=== PATIENT | male | born 1965 | race Caucasian/White ===

== ENCOUNTER 2020-04-04 01:20 | Observation (INO) ==
[2020-04-04] MEDS ORDERED: ONDANSETRON 4 MG/2 ML VIAL IV STA (01:35)
[2020-04-04] MEDS ORDERED: SODIUM CHLORIDE 0.9% 1,000 ML IV STA (01:35)
[2020-04-04] MEDS ORDERED: HYDROmorphone 2 MG/1 ML VIAL IV STA (01:35)
[2020-04-04] MEDS ORDERED: KETOROLAC 30 MG/1 ML VIAL IV STA (01:35)
[2020-04-04 02:15] LABS: Basophils % 0.5 % (0.0-0.8); Eosinophils % 0.3 % (0.00-10.9); Hematocrit 41.5 VOL% (42.0-52.0); Hemoglobin 14.7 GM/DL (14.0-18.0); Immature Granulocytes % 0.3 %; Immature Granulocytes Absolute 0.01 #; Lymphocytes # 1.3 10*3/uL (1.4-4.0); Lymphocytes % 34.2 % (21.2-54.2); Mean Corpuscular HGB Conc 35.4 GM/DL (32-36); Mean Corpuscular Volume 91.2 FL (87-102); Mean Platelet Volume 11.1 FL (9.6-12.0); Monocytes % 13.9 % (1.7-12.7); Neutrophils % 50.8 % (38.7-73.9); Platelet Count 142 T/CUMM (130-400); Red Blood Count 4.55 MC/CUMM (3.8-5.5); Red Cell Distribution Width 11.5 % (9.3-17.3); White Blood Count 3.7 T/CUMM (4-12)
[2020-04-04 02:35] LABS: Albumin 3.5 G/DL (3.4-5.0); Bilirubin,Total 0.4 MG/DL (0.2-1.0); Calcium 8.5 MG/DL (8.5-10.1); Osmolality,Calculated 278.8 MOS/KG (273-304); Total Protein 6.7 G/DL (6.4-8.3)
[2020-04-04] MEDS ORDERED: MAGNESIUM SULF RIDER 2 GM in PREMIX 1 EACH IV STA (02:43)
[2020-04-04] MEDS ORDERED: HYDROmorphone 2 MG/1 ML VIAL IV ONE (03:10)
[2020-04-04 03:44] LABS: Apearance,Urine CLEAR (Clear); Bilirubin,Urine Negative (Negative); Blood, Urine Large mg/dL (Negative); Glucose,Urine (UA) 50 mg/dL (Negative); Hyaline Casts,Urine 6 /LPF (0-3); Ketones,Urine Negative (Negative); Mucus,Urine Occasional /LPF (Occasional); Nitrite,Urine Negative (Negative); Protein,Urine 30 MG/DL; RBC,Urine 22 /HPF (0-4); Urine Color Yellow (Yellow); Urine Specific Gravity 1.017 (1.001-1.035); Urine Urobilinogen < 2.0 EU/DL (0.2-1.0); WBC,Urine 2 /HPF (0-6)
[2020-04-04] MEDS ORDERED: GLUCAGON 1 MG VIAL IM PRN (05:02)
[2020-04-04] MEDS ORDERED: ONDANSETRON 4 MG/2 ML VIAL IV PRN (05:02)
[2020-04-04] MEDS ORDERED: DEXTROSE 50% 25 GM/50 ML VIAL IV PRN (05:02)
[2020-04-04] MEDS: SODIUM CHLORIDE 0.9% 1,000 ML IV SCH ×2 (05:27→15:48)
[2020-04-04] MEDS: KETOROLAC 15 MG/1 ML VIAL IV SCH ×4 (05:27→23:22)
[2020-04-04] MEDS: HYDROmorphone 2 MG/1 ML VIAL IV PRN ×2 (07:45→13:38)
[2020-04-04] MEDS: PANTOPRAZOLE 40 MG TABLET PO SCH (08:11)
[2020-04-04] MEDS: ENOXAPARIN 40 MG/0.4 ML SYRINGE SUBCUT SCH (08:11)
[2020-04-04] MEDS: OLMESARTAN 5 MG TABLET PO SCH (08:41)
[2020-04-04] MEDS ORDERED: TAMSULOSIN 0.4 MG CAPSULE PO SCH (09:00)
[2020-04-04] MEDS: cefTRIAXone 1,000 MG in SYRINGE 1 EACH IV SCH (09:47)
[2020-04-04] MEDS ORDERED: ROSUVASTATIN 10 MG TABLET PO SCH (21:00)
[2020-04-04] MEDS: TAMSULOSIN 0.4 MG CAPSULE PO SCH (21:26)
[2020-04-05 05:50] LABS: Basophils % 0.5 % (0.0-0.8); Eosinophils # 0.1 10*3/uL (0.0-0.87); Eosinophils % 1.3 % (0.00-10.9); Hematocrit 36.1 VOL% (42.0-52.0); Hemoglobin 12.6 GM/DL (14.0-18.0); Immature Granulocytes % 0.3 %; Immature Granulocytes Absolute 0.01 #; Lymphocytes # 1.7 10*3/uL (1.4-4.0); Lymphocytes % 42.5 % (21.2-54.2); Mean Corpuscular HGB Conc 34.9 GM/DL (32-36); Mean Corpuscular Volume 92.8 FL (87-102); Mean Platelet Volume 11.4 FL (9.6-12.0); Monocytes % 12.2 % (1.7-12.7); Neutrophils % 43.2 % (38.7-73.9); Platelet Count 116 T/CUMM (130-400); Red Blood Count 3.89 MC/CUMM (3.8-5.5); Red Cell Distribution Width 11.4 % (9.3-17.3); White Blood Count 3.9 T/CUMM (4-12)
[2020-04-05 06:22] LABS: Calcium 7.5 MG/DL (8.5-10.1); Osmolality,Calculated 273.8 MOS/KG (273-304)
[2020-04-05 06:35] LABS: Eosinophils 1 % (0-10); Lymphocytes 41 % (20-55); Platelet Estimate Adequate; Segmented Neutrophils 50 % (50-85); Total Cells Counted 100
[2020-04-05] MEDS ORDERED: POTASSIUM CHLORIDE 20 MEQ TABLET PO ONE (07:36)
[2020-04-05] MEDS: cefTRIAXone 1,000 MG in SYRINGE 1 EACH IV SCH (08:07)
[2020-04-05] MEDS: TAMSULOSIN 0.4 MG CAPSULE PO SCH (09:22)
[2020-04-05] MEDS: PANTOPRAZOLE 40 MG TABLET PO SCH (09:22)
[2020-04-05] MEDS: OLMESARTAN 5 MG TABLET PO SCH (09:24)
[2020-04-05] MEDS: ENOXAPARIN 40 MG/0.4 ML SYRINGE SUBCUT SCH (09:29)
[2020-04-05 11:48] VITALS: BP 160/95
== END 2020-04-05 12:00 | disposition home or self-care (01) ==
LOC: N.ED 01:20 → N.EDINP 01:20 → N.3E 05:36
PROVIDERS: ADMIT Internal Medicine; ATTEND Internal Medicine